=== PATIENT | male | born 1955 | race Caucasian/White ===

== ENCOUNTER 2016-04-05 05:13 | Observation (INO) | payer OTHER ==
[2016-02-28 11:29] VITALS: BMI 33.0
--- NOTE | 2016-02-28 12:15 | PAT Medication Instructions ---
Service Date Feb 28, 2016. Current Home Medication List Aspirin (Aspirin Ec), 81 MG PO QAM Atorvastatin (Lipitor), 80 MG PO QAM Canagliflozin (Invokana), 1 TAB PO QAM Clopidogrel (Plavix), 75 MG PO QAM Dorzolamide Hcl-Timolol Maleat (Cosopt Oph), Unknown Dose OP BID Fenofibrate (Tricor ), 145 MG PO QPM Fish Oil ([place]-3), 1,360 MG PO BID Fluticasone Propionate (Nasal) (Flonase Allergy Relief), 2 SPRAY VILMA QAM Gabapentin (Neurontin), 600 MG PO BID Hydrocodone/Acetaminophen 5MG/325MG (Renick 5MG/325MG), 1 TABLET PO HS PRN for Pain Ibuprofen (Motrin), 800 MG PO NOON PRN for Pain Indomethacin (Indocin), 25 MG PO PRN PRN for GOUT Insulin Aspart (Novolog Flexpen) Insulin Glargine (Lantus Solostar), 56 SC AMPM Liraglutide (Victoza), 1.2 MG SC QAM Loratadine (Claritin), 10 MG PO QAM Losartan Potassium (Cozaar), 50 MG PO QAM Metformin Hcl (Glucophage), 1,000 MG PO BID Montelukast Sodium (Singulair), 10 MG PO HS Omeprazole (Prilosec), 20 MG PO QAM Tramadol (Ultram), 50 MG PO Q8H PRN for Pain Travoprost (Travatan Z), 1 DROPS OPL HS Trazodone Hcl (Trazodone), 50 MG PO QPM Medication Instructions For Your Scheduled Surgery - Check with surgeon for instructions: Ibuprofen (Motrin), 800 MG PO NOON PRN for Pain - Check with surgeon/fiberglass container winding operator (Dr. Cid) for instructions: Aspirin (Aspirin Ec), 81 MG PO QAM Clopidogrel (Plavix), 75 MG PO QAM - Hold the following medications 2 weeks prior to surgery: Fish Oil ([place]-3), 1,360 MG PO BID - Hold the following medications 48 hours prior to surgery: Metformin Hcl (Glucophage), 1,000 MG PO BID - Hold the following medications the morning of surgery: Losartan Potassium (Cozaar), 50 MG PO QAM Loratadine (Claritin), 10 MG PO QAM Canagliflozin (Invokana), 1 TAB PO QAM Insulin Aspart (Novolog Flexpen) - Take the following medications the morning of surgery with a sip of water: Omeprazole (Prilosec), 20 MG PO QAM Liraglutide (Victoza), 1.2 MG SC QAM Gabapentin (Neurontin), 600 MG PO BID Fluticasone Propionate (Nasal) (Flonase Allergy Relief), 2 SPRAY VILMA QAM Indomethacin (Indocin), 25 MG PO PRN PRN for GOUT Hydrocodone/Acetaminophen 5MG/325MG (Renick 5MG/325MG), 1 TABLET PO HS PRN for Pain (okay to take up to 4 hours prior to surgery if needed) Tramadol (Ultram), 50 MG PO Q8H PRN for Pain (okay to take up to 4 hours prior to surgery if needed) Dorzolamide Hcl-Timolol Maleat (Cosopt Oph), Unknown Dose OP BID Atorvastatin (Lipitor), 80 MG PO QAM - Hold the following medications as scheduled the night before surgery: Fenofibrate (Tricor ), 145 MG PO QPM - Take the following medications as scheduled the night before surgery: Trazodone Hcl (Trazodone), 50 MG PO QPM Travoprost (Travatan Z), 1 DROPS OPL HS Montelukast Sodium (Singulair), 10 MG PO HS Gabapentin (Neurontin), 600 MG PO BID Indomethacin (Indocin), 25 MG PO PRN PRN for GOUT Hydrocodone/Acetaminophen 5MG/325MG (Renick 5MG/325MG), 1 TABLET PO HS PRN for Pain (if needed) Tramadol (Ultram), 50 MG PO Q8H PRN for Pain (if needed) Dorzolamide Hcl-Timolol Maleat (Cosopt Oph), Unknown Dose OP BID Insulin Glargine (Lantus Solostar), 56 SC AMPM - For Insulin Dependent Diabetic patients: Test blood sugar A.M. of surgery. - If blood sugar greater than 150, take half of your regular dose of: Insulin Glargine (Lantus Solostar), take 28 units - If blood sugar less than 150, do not take any: Insulin Glargine ( Lantus Solostar) If you have any questions please call us at [phone] (Radha Mary PA-C) or [phone] or [phone]
[2016-02-28 12:38] LABS: BASO % 0.4 %; BASO ABS # 0.03 K/uL (0-0.2); COMPLETE YES; EOS % 1.5 %; HEMATOCRIT 38.4 % (42-52); IG% 0.4 %; LYMPH % 40.2 %; LYMPH ABS # 2.95 K/uL (1.2-3.4); MEAN CORPUSCULAR HGB CONC 34.1 g/dl (32-36); MEAN PLATELET VOLUME 9.8 fL (7.4-10.4); MONO % 10.1 %; NEUT % 47.4 %; PLATELET COUNT 332 K/uL (130-400); RED BLOOD COUNT 4.22 M/uL (4.7-6.1); WHITE BLOOD COUNT 7.34 K/uL (4.8-10.8)
--- NOTE | 2016-02-28 12:43 | DIAGNOSTIC IMAGING REPORT ---
CHEST PREADMISSION(PA/LAT) CLINICAL HISTORY: Preoperative evaluation. COMPARISON STUDY: No previous studies for comparison. FINDINGS: Lung volumes are normal. There is no pneumothorax or pleural effusion. Pulmonary vascularity is normal. There is no consolidation to suggest pneumonia. Minimal bibasilar opacities favor atelectasis. Cardiac size is normal. Mediastinal contours are normal. IMPRESSION: 1. No acute cardiomegaly findings. 2. Minimal bibasilar opacities which likely reflect atelectasis. Electronically signed by: Bob Cheek M.D. 02/28/2016 12:42 PM
[2016-02-28 12:46] LABS: PROTHROMBIN TIME (PATIENT) 10.3 SECONDS (9.0-12.0)
[2016-02-28 12:50] LABS: URINE APPEARANCE CLEAR (CLEAR); URINE BILIRUBIN NEG (NEG); URINE COLOR YELLOW; URINE NITRITE NEG (NEG); URINE SPECIFIC GRAVITY 1.017 (1.000-1.030); UROBILINOGEN NEG (NEG)
[2016-02-28 12:58] LABS: MANUAL MICROSCOPIC REQUIRED? NO; REVIEW REQ? NO
[2016-02-28 13:02] LABS: BUN/CREATININE RATIO 13.4 (10-20); CALCIUM 9.5 mg/dl (8.5-10.1); CREATININE 1.4 mg/dl (0.60-1.40); POTASSIUM 4.3 mmol/L (3.5-5.1)
--- NOTE | 2016-04-04 12:38 | HISTORY & PHYSICAL EXAMINATION ---
DATE OF ADMISSION: 04/05/2016 SUBJECTIVE CHIEF COMPLAINT: Right ankle pain. HISTORY OF PRESENT ILLNESS: This is a patient who has had a 4 year history of right hindfoot pain and swelling. He has been treated for severe arthritis and possible Charcot foot and ankle. He is a type 2 diabetic with a 15 year history of neuropathy within the lower extremity. He had failed conservative management. He is now being set up for surgical treatment. PAST MEDICAL HISTORY: Farley's esophagus, ischemic heart disease, angioplasty and stenting of the mid right coronary artery on 01/16/2006, diabetes, hyperlipidemia, diabetic retinopathy, diabetic neuropathy with peripheral neuropathy, history of kidney stones, glaucoma. History of sciatica, gout. CURRENT MEDICATIONS: Tricor 145 mg p.o. daily, Lipitor 80 mg p.o. daily, trazodone 25 mg 3 tablets p.o. at bedtime, Plavix 75 mg daily, aspirin 81 mg daily, fish oil 1000 mg p.o. daily, Claritin 10 mg daily, Flonase 1 spray in each nostril daily, Trusopt eyedrops 1 drop in each eye b.i.d., Lantus insulin 58 units subQ b.i.d., Travatan eye drops in the left eye 1 drop at bedtime, Novolin insulin on a sliding scale, Osteo Bi-Flex 1 p.o. daily, gabapentin 300 mg p.o. t.i.d., metformin 1000 mg p.o. b.i.d., losartan 25 mg p.o. daily, Singulair 10 mg p.o. daily, omeprazole 20 mg daily, indomethacin 25 mg p.o. b.i.d. p.r.n., Mag-Ox 750 mg 1 p.o. daily, tramadol 50 mg 1 p.o. q. 6 hours p.r.n. pain, Invokana 300 mg 1 p.o. daily, and [place] 5/325 mg 1 p.o. q. 6 hours p.r.n. pain. ALLERGIES: ACTOS CAUSES FLUID RETENTION, AND LISINOPRIL CAUSES A COUGH. FAMILY HISTORY: Noncontributory. SOCIAL HISTORY: The patient denies alcohol and tobacco use. PAST SURGICAL HISTORY: Vitrectomy in both eyes, cardiac stent in 2005. OBJECTIVE PHYSICAL EXAMINATION: GENERAL: The patient is alert and oriented x3. He is in no acute distress. He is a well-dressed, well-nourished 61-year-old male. Neuro, his affect is appropriate. CARDIOVASCULAR: Heart has a regular rhythm and rate without murmurs. LUNGS: Clear to auscultation bilateral. Dorsalis pedis, posterior tib pulse +2/4. Cap refill is less than 2 seconds. LYMPHATIC: No evidence of any swollen lymph nodes. MUSCULOSKELETAL: The patient has an antalgic gait favoring the right lower extremity. Upon inspection of the right lower extremity, the patient is noted to have a pes planovalgus deformity of the right hindfoot. He is noted to have significant swelling of the hindfoot and mid foot on the right side. With palpation, he has tenderness at both the medial and lateral aspects of the hindfoot in the area of the talonavicular joint and at the sinus tarsi. He has decrease in range of motion particularly with dorsiflexion, which he gets approximately 0 degrees. Any range of motion elicits pain. He has decrease in strength secondary to pain. SKIN: There are no scars, rashes or ulcers noted. NEUROLOGIC: The patient has decreased sensation of bilateral lower extremities in the stocking distribution. X-RAY EXAMINATION: Multiple views of the right foot and ankle demonstrate pes planus deformity with severe hindfoot osteoarthritic changes. ASSESSMENT: 1. Right hindfoot osteoarthritis. 2. Right foot Charcot arthropathy. 3. Right painful pes planovalgus deformity. 4. Achilles contracture. PLAN: Above assessment was discussed with the patient. At this time it was recommended the patient undergo a right triple arthrodesis with percutaneous tendo Achilles lengthening and application of platelet rich plasma. All potential risks, benefits, complications, alternatives and rehab have been discussed with the patient. At this time he wishes to proceed with the surgery as indicated. He will be scheduled for this surgery on 04/05/2016. ANDREA
[~2016-04-05] VITALS: Ht 182.9 cm; Wt 112.0 kg
[2016-04-05] VITALS (9 sets, daily range): BP systolic 117–159; BP diastolic 72–84; PULSE 76–97; TEMP 36.4–37.4; O2SAT 90–97; Ht 182.9 cm; Wt 112.0 kg
[~2016-04-05 05:13] MED LIST: ASPI81TA28 PO; ATOR-26 PO; CANA1TAB3 PO; CEFAZOLIN 2000 MG/60 ML D5W IV SCH; CLOP1TAB15 PO; CLR10 PO; DORZ2SOL20 OP; FENO145T26 PO; FLUT0.15 NAE; GABA-113 PO; HYDR-5688 PO; IBUP-1428 PO; INDO-22 PO; INSDGIPEN SC; LIRA18IN SC; LOSA50TA6 PO; METF-384 PO; MONT1TAB3 PO; NVLGI/PEN; OMEG10007 PO; OMEP20CA59 PO; TRAM-10 PO; TRAV0.00 OPL; TRAZ50TA35 PO
[2016-04-05] MEDS ORDERED: LACTATED RINGER'S 1000ML 1,000 ML IV SCH (06:00)
[2016-04-05] MEDS ORDERED: CEFAZOLIN IV 2,000 MG/60 ML D5W IV ONE ×2 (06:19→06:46)
[2016-04-05] MEDS ORDERED: GLYCOPYRROLATE INJ 0.2 MG/ML VIAL ONE (06:25)
[2016-04-05] MEDS ORDERED: PROPOFOL IV EMULSION 10 MG/ML 20 ML VIAL IV ONE (06:25)
[2016-04-05] MEDS ORDERED: ROCURONIUM BROMIDE 10 MG/ML 5 ML VIAL ONE (06:25)
[2016-04-05] MEDS ORDERED: NEOSTIGMINE METHYLSULFATE 5 MG/5 ML SYR ONE (06:25)
[2016-04-05] MEDS ORDERED: DEXAMETHASONE SOD INJ 4 MG/ML VIAL ONE (06:25)
[2016-04-05] MEDS ORDERED: ONDANSETRON INJ 2 MG/ML 2 ML VIAL ONE (06:25)
[2016-04-05] MEDS ORDERED: LIDOCAINE HCL 2% 2 ML VIAL (20MG/ML) ONE (06:25)
[2016-04-05] MEDS ORDERED: FENTANYL CITRATE INJ 50 MCG/1 ML 2 ML VIAL ONE ×2 (06:26→10:07)
[2016-04-05] MEDS ORDERED: MIDAZOLAM HCL 1 MG/ML 2ML VIAL ONE (06:26)
[2016-04-05] MEDS ORDERED: BUPIVACAINE 0.25% 30 ML VIAL ONE (06:26)
[2016-04-05] MEDS ORDERED: ONDANSETRON INJ 2 MG/ML 2 ML VIAL IV PRN ×2 (07:15→11:30)
[2016-04-05] MEDS ORDERED: PHENYLEPHRINE 100MCG/ML 5ML SYR IV PRN (07:15)
[2016-04-05] MEDS ORDERED: ATROPINE SULFATE 0.1 MG/ML 5ML SYR IV PRN (07:15)
[2016-04-05] MEDS ORDERED: HYDROmorphone INJ 2 MG/ML SYR/VIAL IV PRN (07:15)
[2016-04-05] MEDS ORDERED: EpHEDrine SULFATE INJ 50 MG/ML AMP IV PRN (07:15)
--- NOTE | 2016-04-05 07:34 | History & Physical Bridge Note ---
H&P Re-Evaluation Bridge Note: I have examined the patient, reviewed the History & Physical and in the interval since the performance of the History & Physical I have noted the following changes of clinical significance: No changes noted
[2016-04-05] MEDS ORDERED: SUCCINYLCHOLINE CHLORIDE 20 MG/ML 10 ML VIAL IV ONE (08:24)
[2016-04-05] MEDS ORDERED: SODIUM CHLORIDE 0.9% INJ 10 ML VIAL ONE (08:24)
[2016-04-05] MEDS ORDERED: THROMBIN 5,000 UNITS (BOVINE) TOP ONE (08:46)
[2016-04-05] MEDS ORDERED: CALCIUM CHLORIDE 10% XX ONE (08:47)
[2016-04-05] MEDS ORDERED: BACITRACIN 50000 UNIT VIAL IR ONE (10:44)
--- NOTE | 2016-04-05 11:29 | [facility] Post Operative Brief Note ---
Immediate Operative Summary Operative Date Apr 05, 2016. Pre-Operative Diagnosis Right hindfoot osteoarthritis, right foot Charcot arthropathy, right painful pes planovalgus deformity, achilles contracture Post-Operative Diagnosis Right hindfoot osteoarthritis, right foot Charcot arthropathy, right painful pes planovalgus deformity, achilles contracture Procedure(s) Performed Right Ankle Triple Arthrodesis with Percutaneous Tendoachilles Lengthening; Application of Platelet Rich Plasma; Application of Augment Surgeon Dr. Rodríguez Hood Greeting Card Maker Surgeon(s) Osito Valiente PA-C Estimated Blood Loss 20ml Findings See Dict Specimens None per surgeon Drains HV x 1 Anesthesia GLMA w/ popliteal block Complication(s) None Disposition Recovery Room / PACU
[2016-04-05] MEDS ORDERED: INDOMETHACIN 25 MG CAP PO PRN ×2 (11:30→15:00)
[2016-04-05] MEDS ORDERED: ALUMINUM/MAGNESIUM/SIMETH (MAALOX MAX) 30 ML UDC PO PRN (11:30)
[2016-04-05] MEDS ORDERED: MAGNESIUM HYDROXIDE SUSP 30 ML UDC PO PRN (11:30)
[2016-04-05] MEDS ORDERED: NO NSAIDS SCH (11:30)
[2016-04-05] MEDS ORDERED: BISACODYL 10 MG SUPP PR PRN (11:30)
[2016-04-05] MEDS ORDERED: ZOLPIDEM TARTRATE 5 MG TAB PO PRN (11:30)
[2016-04-05] MEDS ORDERED: SOD PHOSPHATE/SOD BIPHOSPHATE ENEMA 132 ML BTL PR PRN (11:30)
[2016-04-05] MEDS ORDERED: IV FLUIDS COMPLETED PRN (12:00)
--- NOTE | 2016-04-05 12:36 | DIAGNOSTIC IMAGING REPORT ---
RIGHT ANKLE 2 VIEWS CLINICAL HISTORY: Post operative evaluation. COMPARISON: Fluoroscopic intraoperative images of the right ankle performed earlier today. FINDINGS: Fine detail is obscured by overlying cast. Skin jarad overlie the Achilles tendon. Screws extend across the subtalar, talonavicular and calcaneocuboid articulations consistent with a triple arthrodesis. Hardware is intact. Surgical drain is in place. There are no unexpected radiopaque foreign bodies. There is no fracture. IMPRESSION: Expected findings following triple arthrodesis. Electronically signed by: Bob Cheek M.D. 04/05/2016 12:35 PM Dictated Date/Time: 04/05/2016 12:33 PM
--- NOTE | 2016-04-05 12:37 | DIAGNOSTIC IMAGING REPORT ---
RIGHT FOOT MIN 3 VIEWS ROUTINE CLINICAL HISTORY: Postoperative evaluation. Osteoarthritis. COMPARISON: None FINDINGS: Fine detail is imaged by overlying cast. Drain is in place. There are skin jarad. Screws extend across the subtalar, talonavicular and calcaneocuboid articulations. Hardware is intact. There are no unexpected radiopaque foreign bodies. No fracture is identified. IMPRESSION: Expected findings following right triple arthrodesis. Electronically signed by: Bob Cheek M.D. 04/05/2016 12:36 PM Dictated Date/Time: 04/05/2016 12:35 PM
--- NOTE | 2016-04-05 12:38 | DIAGNOSTIC IMAGING REPORT ---
INTRAOPERATIVE RADIOGRAPHS CLINICAL HISTORY: Right hindfoot arthrodesis. Fluoroscopy time: 20 seconds. FINDINGS: 2 spot fluoroscopic views of the right ankle are presented. There are changes from triple arthrodesis of the right hindfoot. A large cortical lag screw transfixes the talocalcaneal articulation. 2 cortical lag screws transfix the talonavicular joint, and an additional cortical-like screw is present through the lateral tarsal bones. Overlying soft tissue edema is noted. IMPRESSION: Intraoperative images from triple arthrodesis in the hindfoot as above. See operative report for detailed findings. Electronically signed by: Earnest Lara M.D. 04/05/2016 12:37 PM Dictated Date/Time: 04/05/2016 12:35 PM
--- NOTE | 2016-04-05 12:44 | Anesthesiology Progress Note ---
Anesthesia Post Op Note Date & Time Apr 05, 2016 at 12:44 Vital Signs Pain Intensity: 1 Vital Signs Past 12 Hours Date Time Temp Pulse Resp B/P Pulse Ox O2 Delivery O2 Flow Rate FiO2 04/05/16 12:14 86 14 95 04/05/16 12:14 85 14 04/05/16 12:13 151/70 04/05/16 12:09 86 21 94 04/05/16 12:09 86 21 04/05/16 12:08 85 23 95 04/05/16 12:08 84 23 04/05/16 12:03 85 12 150/71 95 04/05/16 12:03 85 12 04/05/16 11:58 89 18 149/74 95 04/05/16 11:58 88 18 04/05/16 11:53 83 10 04/05/16 11:53 87 10 157/67 96 04/05/16 11:48 83 11 04/05/16 11:48 84 11 154/67 95 04/05/16 11:47 36.8 04/05/16 11:43 84 15 162/76 100 04/05/16 11:43 84 15 04/05/16 11:38 83 12 145/70 98 04/05/16 11:38 83 12 04/05/16 11:33 84 11 04/05/16 11:33 84 11 156/68 98 04/05/16 11:30 Nasal Cannula 3 04/05/16 11:28 80 10 04/05/16 11:28 79 10 147/68 96 04/05/16 11:23 82 11 04/05/16 11:23 81 11 153/75 99 04/05/16 11:18 83 13 158/73 99 04/05/16 11:18 82 13 04/05/16 11:16 167/78 04/05/16 11:13 36.5 86 16 167/78 99 Mask 10 04/05/16 06:03 36.8 76 20 125/75 97 Room Air Notes Mental Status: alert / awake / arousable, participated in evaluation Pt Amnestic to Procedure: Yes Nausea / Vomiting: adequately controlled Pain: adequately controlled Airway Patency, RR, SpO2: stable & adequate BP & HR: stable & adequate Hydration State: stable & adequate Anesthetic Complications: no major complications apparent
--- NOTE | 2016-04-05 13:32 | OPERATIVE REPORT ---
DATE OF OPERATION: 04/05/2016 PREOPERATIVE DIAGNOSES: 1. Right hindfoot degenerative joint disease. 2. Achilles contracture. 3. Charcot arthropathy of the foot. 4. Painful pes planovalgus. POSTOPERATIVE DIAGNOSES: Same. PROCEDURES: 1. Right triple arthrodesis. 2. Percutaneous tendon Achilles lengthening. 3. Application of platelet rich plasma concentrate. 4. Application of Augment bone substitute. SURGEON: Dr. Rodríguez Hood. DIRECTOR PHARMACOVIGILANCE: Osito Valiente PA-C, who was present for patient positioning, sterile prep and drape, management of retractors and instruments. He was present through the critical portions of the case including wound closure, application of sterile dressing and transport of the patient to recovery. ANESTHESIA: General LMA with popliteal block. SPECIMENS: None. DRAINS: Hemovac x1. COMPLICATIONS: None. BLOOD LOSS: 20 mL. PERTINENT HISTORY: This is a 61-year-old gentleman who has been diabetic for several years, developed neuropathy of his lower extremities and developed Charcot neuroarthropathy of the right lower extremity. The patient had progressive collapse and deformity of his right foot with some pain. He was then scheduled for surgery as indicated. All potential risks, benefits, complications, alternatives, rehab, potential for incomplete relief of symptoms, need for further surgery, DVT, PE, , persistent pain, swelling, scarring, weakness, neurovascular injury, wound complications, hardware failure, nonunion, malunion, and bone fracture were discussed with the patient and the patient decided to proceed with the procedure as indicated. DESCRIPTION OF PROCEDURE: The patient was taken to the Operating Suite, placed supine on the Operating Room table, after consent and identification of the proper operative site, the patient was anesthetized. LMA was placed. Tourniquet was placed high on the right lower extremity. Right lower extremity was then sterilely prepped and draped in the usual fashion. Exsanguinated with an Esmarch bandage and tourniquet inflated to 350 mmHg. Next, the foot was held in dorsiflexion and a three-part percutaneous incision was made with an 11-blade scalpel to lengthen the Achilles tendon using standard technique. Next, the stab incisions were then closed using interrupted skin jarad. Next, the 15-blade scalpel was used to make an incision from the distal aspect of the fibula to the base of the fourth metatarsal. The incision was deepened through subcutaneous tissue and meticulous hemostasis was obtained with electrocautery. Subcutaneous nerves were identified, retracted and protected. The extensor digitorum brevis was identified and was sharply elevated from the anterior process of the calcaneus revealing the sinus tarsi. Next, the sinus tarsi was debrided carefully with a rongeur and 15-blade scalpel. A cervical lamina psychological operations officer was placed in the sinus tarsi opening the subtalar joint. Subtalar joint was then prepared with the use of a curette and rongeur to resect the articular surfaces down to subchondral bleeding bone. Irrigation was performed with sterile normal saline and then 2-mm drill bit was used to further prepare the joint surface with multiple drill holes in both surfaces of the subtalar joint and a small osteotome and mallet were used to fish scale the joint surfaces to increase surface area and bleeding. Next, the calcaneocuboid joint was then entered with the 15-blade scalpel, debrided of soft tissue and then a lamina psychological operations officer was placed in the joint opening it for preparation with a curette and rongeur to remove any articular surface down to subchondral bleeding bone. Next, the 2-mm drill bit was used to further prepare the joint with multiple drill holes into the joint and then a small osteotome and mallet were used to fish scale the joint. Next, the 15-blade was used to make an incision from the distal aspect of the tibia to the base of the naviculocuneiform joint. The incision was deepened through subcutaneous tissue. Meticulous hemostasis obtained with electrocautery. A Weitlaner retractor was placed in the wound. The greater saphenous vein was identified, retracted and protected. The capsule of the talonavicular joint was then entered sharply with a 15-blade scalpel and elevated both superior and inferiorly. A small Harley was placed on the neck of the talus and further soft tissue elevation was performed with the 15-blade scalpel until the talonavicular joint was clearly visualized. The articular surface was then debrided with curette and rongeur and a cervical lamina psychological operations officer was placed in the joint. Next, it was irrigated with sterile normal saline and a 2-mm drill bit was used to make multiple holes in the joint surfaces and fish scaling was performed with a small osteotome and mallet. Next, the medial and lateral incisions were irrigated copiously with sterile normal saline and the joint surfaces were then aligned appropriately based on alignment of the lower extremity and the kneecap. Subtalar joint was aligned and then a 7.3-mm cannulated guidepin was driven from the superior aspect of the talus across the subtalar joint into the calcaneus under fluoroscopic control. Next, an appropriate length 7.3-mm short-thread screw was placed under fluoroscopic control and countersunk slightly. Next, the guidepin was removed. Next, 2.25-mm guidepins x2 were used to stabilize the talonavicular joint in appropriate alignment and then the calcaneocuboid joint was then stabilized with another guidepin with appropriate alignment under fluoroscopic control. Next, appropriate length 7.3-mm short-thread cannulated screws were placed across the talonavicular and calcaneocuboid joints respectively under fluoroscopic control. Venous blood was extracted from the patient, spun in a proprietary centrifuge and then the platelet rich plasma concentrate was then partially mixed with Augment bone graft substitute with thrombin and then inserted into the subtalar joint, into the calcaneocuboid joint and into the talonavicular joint, packed in with a freer elevator. A 10-Montserratian single lumen Hemovac drain was then placed in the lateral aspect of the wound exiting dorsolaterally and the extensor digitorum brevis then closed back to its origin with interrupted 2-0 Vicryl sutures. PRP was injected throughout both incisions both medially and laterally. The talonavicular joint capsule was closed using 2-0 Vicryl sutures. The dermis was closed using buried interrupted 3-0 Vicryl sutures medially and laterally and then skin incisions were closed using 4-0 Nylon sutures. A sterile compressive dressing and bulky Bob-Denise plaster splint was applied, overwrapped with an Keith wrap. The tourniquet was released. The toes were pink and warm. DISPOSITION: Patient was awakened and taken to Recovery in stable condition. I attest to the content of the Intraoperative Record and any orders documented therein. Any exceptions are noted below. ANDREA
[2016-04-05] MEDS: POTASSIUM CHLORIDE INJ 10 MEQ in SODIUM CHLORIDE 0.9% 1000ML 1,000 ML IV SCH ×2 (13:44→23:33)
[2016-04-05] MEDS: ACETAMINOPHEN 500 MG TAB PO SCH ×2 (14:23→21:15)
[2016-04-05] MEDS: OXYCODONE HCL IR 5 MG TAB (IMMEDIATE RELEASE) PO PRN ×2 (14:24→21:15)
[2016-04-05] MEDS ORDERED: DEXTROSE 50% 50 ML SYR IV PRN (14:45)
[2016-04-05] MEDS ORDERED: GLUCAGON FOR INJ 1 MG VIAL SQ PRN (14:45)
[2016-04-05] MEDS ORDERED: GLUCOSE 10 TABS/TUBE PO PRN (14:45)
[2016-04-05] MEDS ORDERED: GLUCOSE 40% GEL 15 GM TUBE PO PRN (14:45)
[2016-04-05] MEDS ORDERED: MAGN400T5 PO (14:50)
[2016-04-05] MEDS ORDERED: DORZ1SOL6 OP (14:50)
[2016-04-05] MEDS ORDERED: NRN600 PO (14:50)
[2016-04-05] MEDS ORDERED: TRAZ50TA35 PO (14:50)
[2016-04-05] MEDS ORDERED: IND/25 PO (14:50)
[2016-04-05] MEDS ORDERED: ASCO500T3 PO (14:50)
[2016-04-05] MEDS ORDERED: INSDGIPEN SC (14:50)
--- NOTE | 2016-04-05 15:13 | Medical Consult ---
Consultation Date of Consultation: Apr 05, 2016. Attending Physician: Rodríguez Hood D.O. Reason for Consultation: medical mgmt History of Present Illness This is a 61 y/o male with PMHx of insulin-dependant DM2, CAD s/p stent, HTN, Dyslipidemia and other problems as outlined below who presents POD 0 s/p R foot surgery performed by Dr. Hood. Pt is doing well post-operatively. He rates R ankle pain at a 4/10 but states the pain medication has been offering relief. Pt denies chest pain, palpitations, SOB, abd pain, N/V, bowel or bladder issues , LE edema, calf pain, lightheadedness/dizziness. Past Medical/Surgical History Medical Problems: (1) CAD (coronary artery disease) Status: Chronic (2) Diabetes mellitus, type II Status: Chronic (3) Dyslipidemia Status: Chronic (4) GERD (gastroesophageal reflux disease) Status: Chronic (5) Glaucoma Status: Chronic (6) HTN (hypertension) Status: Chronic Surgical Problems: (1) H/O vitrectomy Permanent Comment: bilat Status: Resolved (2) Stented coronary artery Permanent Comment: mid RCA 2005 Dr. 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) Allergies Coded Allergies: No Known Allergies (Unverified , 02/28/16) Home Medications Active Reported Vitamin C (Ascorbic Acid) 500 Mg Tab 500 Mg PO DAILY Mag-Ox (Magnesium Oxide) 400 Mg Tab 400 Mg PO TID Trazodone (Trazodone HCl) 50 Mg Tab 150 Mg PO HS Lantus Solostar (Insulin Glargine) 100 Unit/Ml Inj 58 Units SC BID Indocin (Indomethacin) 25 Mg Cap 25 Mg PO TID PRN Gabapentin 600 Mg Tab 1,200 Mg PO HS Cosopt Oph (Dorzolamide Hcl-Timolol Maleat) 1 Shanice Shanice 1 Drops OP BID Victoza (Liraglutide) 18 Mg/3 Ml Inj 1.2 Mg SC QAM Aspirin Ec (Aspirin) 81 Mg Tab 81 Mg PO QAM Claritin (Loratadine) 10 Mg Tab 10 Mg PO QAM Ultram (Tramadol HCl) 50 Mg Tab 50 Mg PO Q8H PRN Plavix (Clopidogrel Bisulfate) 75 Mg Tab 75 Mg PO QAM [place]-3 (Fish Oil) 1 Ea Cap 1,360 Mg PO BID Neurontin (Gabapentin) 300 Mg Cap 600 Mg PO BID Travatan Z (Travoprost) 0.004 % Kenn 1 Drops OPL HS Singulair (Montelukast Sodium) 10 Mg Tab 10 Mg PO HS Prilosec (Omeprazole) 20 Mg Capcr 20 Mg PO QAM Glucophage (Metformin Hcl) 1,000 Mg Tab 1,000 Mg PO BID Lipitor (Atorvastatin Calcium) 80 Mg Tab 80 Mg PO QAM Cozaar (Losartan Potassium) 50 Mg Tab 50 Mg PO QAM Novolog Flexpen (Insulin Aspart) 100 Units/Ml Inj DOSED ON SLIDING SCALE BASED OFF OF 26 UNITS PER PATIENT Tricor (Fenofibrate) 145 Mg Tab 145 Mg PO QPM Invokana (Canagliflozin) 300 Mg Tab 1 Tab PO QAM TAKES 15 MINUTES PRIOR TO EATING BREAKFAST Motrin (Ibuprofen) 800 Mg Tab 800 Mg PO NOON PRN Flonase Allergy Relief (Fluticasone Propionate (Nasal)) 50 Mcg/Act Spr 2 [place] VILMA QAM [place] 5MG/325MG (Acetaminophen/Hydrocodone Bitart) Tab 1 Tablet PO HS PRN PRN PAIN Current Inpatient Medications Current Inpatient Medications Medications (Trade) Dose Ordered Sig/Christiano Route Start Time Stop Time Status Last Admin Dose Admin Lactated Ringer's (Lr 1000ml) 1,000 ml @ 15 mls/hr Q24H IV 04/05/16 06:00 04/06/16 05:59 04/05/16 06:30 15 MLS/HR Atorvastatin Calcium (Lipitor Tab) 80 mg QAM PO 04/06/16 09:00 05/06/16 08:59 Clopidogrel Bisulfate (plAVix TAB) 75 mg QAM PO 04/06/16 09:00 05/06/16 08:59 Fenofibrate (Tricor Tab) 145 mg QPM PO 04/05/16 21:00 05/05/16 20:59 Fish Oil ([place]-3 (Purified Fish Oil) Cap) 1 gm BID PO 04/05/16 21:00 05/05/16 20:59 Fluticasone Propionate (Flonase Nasal [place]) 1 sprays QAM VILMA 04/06/16 09:00 05/06/16 08:59 Gabapentin (Neurontin Tab) 600 mg BID PO 04/05/16 21:00 05/05/16 20:59 Loratadine (Claritin Tab) 10 mg QAM PO 04/06/16 09:00 05/06/16 08:59 Losartan Potassium (coZAAR TAB) 50 mg QAM PO 04/06/16 09:00 05/06/16 08:59 Metformin HCl (Glucophage Tab) 1,000 mg BIDM PO 04/05/16 17:45 05/05/16 17:44 Montelukast Sodium (Singulair Tab) 10 mg HS PO 04/05/16 21:00 05/05/16 20:59 Travoprost (Travatan Z) 1 drops HS OPL 04/05/16 21:00 05/05/16 20:59 Trazodone HCl (Desyrel Tab) 50 mg QPM PO 04/05/16 21:00 05/05/16 20:59 Miscellaneous Information (Order Awaiting Action) 1 ea QS N/A 04/05/16 16:00 05/05/16 15:59 Miscellaneous Information 1 ea 1 ea QS N/A 04/05/16 16:00 05/05/16 15:59 Potassium Chloride/Sodium Chloride (KCl Inj/Nss 1000ml) 1,005 ml @ 100 mls/hr Q10H3M IV 04/05/16 13:00 05/05/16 12:59 04/05/16 13:44 100 MLS/HR Miscellaneous Medication (No Nsaids) 1 ea UD N/A 04/05/16 11:30 05/05/16 11:29 Oxycodone HCl (Roxicodone Immediate Rel Tab) 1-2 TABS FOR PAIN 1 TABLET ... Q4H PRN PO 04/05/16 11:30 04/19/16 11:29 Oxycodone HCl (Oxycontin Tab) 10 mg Q12 PO 04/05/16 21:00 04/19/16 20:59 Morphine Sulfate (MoRPHine SULFATE INJ) 1 mg Q1HWA PRN IV 04/05/16 11:30 04/19/16 11:29 Acetaminophen (Tylenol Tab) 1,000 mg Q8 PO 04/05/16 14:00 05/05/16 13:59 Magnesium Hydroxide (Milk Of Magnesia Susp) 30 ml Q6H PRN PO 04/05/16 11:30 05/05/16 11:29 Bisacodyl (Dulcolax Supp) 10 mg DAILY PRN [place] 04/05/16 11:30 05/05/16 11:29 Sodium Biphosphate/ Sodium Phosphate (Fleet Enema) 132 ml DAILY PRN [place] 04/05/16 11:30 05/05/16 11:29 Senna (Senokot Tab) 17.2 mg HS PO 04/05/16 21:00 05/05/16 20:59 Docusate Sodium (coLACE CAP) 100 mg BID PO 04/05/16 21:00 05/05/16 20:59 Diphenhydramine HCl (Benadryl Cap) 25 mg Q8H PRN PO 04/05/16 11:30 05/05/16 11:29 Al Hydrox/Mg Hydrox/Simethicone (Maalox Max Susp) 15 ml Q4H PRN PO 04/05/16 11:30 05/05/16 11:29 Zolpidem Tartrate (Ambien Tab) 5 mg HSZ PRN PO 04/05/16 11:30 05/05/16 11:29 Multivitamins (Multivitamin Tab) 1 tab QAM PO 04/06/16 09:00 05/06/16 08:59 Ondansetron HCl (Zofran Inj) 4 mg Q6H PRN IV 04/05/16 11:30 05/05/16 11:29 Pantoprazole Sodium 40 mg 40 mg QAM PO 04/06/16 09:00 05/06/16 08:59 Cefazolin Sodium/ Dextrose (Ancef Iv/D5 50ml) 60 ml @ 100 mls/hr Q8H IV 04/05/16 16:00 04/06/16 00:35 Miscellaneous (Iv Fluids Completed) 1 ea PRN PRN N/A 04/05/16 12:00 04/05/17 11:59 Review of Systems Constitutional: No chills, No fatigue, No fever, No sweats, No weakness Eyes: No worsening of vision ENT: No hearing loss Respiratory: No cough Cardiovascular: No chest pain, No claudication, No edema Abdomen: No constipation, No diarrhea, No nausea, No pain, No vomiting Musculoskeletal: No calf pain, No swelling Genitourinary - Male: No dysuria Neurologic: No weakness Psychiatric: No depression symptoms Endocrine: No fatigue Hematologic / Lymphatic: No abnormal bleeding/bruising Integumentary: No new/changing skin lesions Physical Exam Date Time Temp Pulse Resp B/P Pulse Ox O2 Delivery O2 Flow Rate FiO2 04/05/16 12:30 95 Nasal Cannula 3.0 04/05/16 12:30 Nasal Cannula 2.0 04/05/16 12:14 86 14 95 04/05/16 12:14 85 14 04/05/16 12:13 151/70 04/05/16 12:09 86 21 94 04/05/16 12:09 86 21 04/05/16 12:08 85 23 95 04/05/16 12:08 84 23 04/05/16 12:03 85 12 150/71 95 04/05/16 12:03 85 12 04/05/16 11:58 89 18 149/74 95 04/05/16 11:58 88 18 04/05/16 11:53 83 10 04/05/16 11:53 87 10 157/67 96 04/05/16 11:48 83 11 04/05/16 11:48 84 11 154/67 95 04/05/16 11:47 36.8 04/05/16 11:43 84 15 162/76 100 04/05/16 11:43 84 15 04/05/16 11:38 83 12 145/70 98 04/05/16 11:38 83 12 04/05/16 11:33 84 11 04/05/16 11:33 84 11 156/68 98 04/05/16 11:30 Nasal Cannula 3 04/05/16 11:28 80 10 04/05/16 11:28 79 10 147/68 96 04/05/16 11:23 82 11 04/05/16 11:23 81 11 153/75 99 04/05/16 11:18 83 13 158/73 99 04/05/16 11:18 82 13 04/05/16 11:16 167/78 04/05/16 11:13 36.5 86 16 167/78 99 Mask 10 04/05/16 06:03 36.8 76 20 125/75 97 Room Air General Appearance: WD/WN, no apparent distress, + pertinent finding (Pt is sitting up in bed with at bedside ) Head: normocephalic, atraumatic Eyes: normal inspection ENT: hearing grossly normal Neck: supple Respiratory/Chest: chest non-tender, lungs clear, normal breath sounds, no respiratory distress Cardiovascular: regular rate, rhythm, no edema, + systolic murmur Abdomen/GI: normal bowel sounds, non tender, soft Back: normal inspection Extremities/Musculoskelatal: no calf tenderness, no pedal edema, + pertinent finding (large dressing applied to RLE with 1 drain noted containing blood ) Neurologic/Psych: alert, normal mood/affect, oriented x 3 Skin: normal color, warm/dry Laboratory Results Last 24 Hours Test 04/05/16 06:06 04/05/16 11:56 Bedside Glucose 180 mg/dl 171 mg/dl Assessment & Plan SEVERE R FOOT OA S/P R ANKLE ARTHRODESIS WITH ACHILLES TENDON LENGTHENING -POD 0; surgery performed by Dr. Hood -post-operative pain well managed -monitor for acute blood loss with daily H&H -pt encouraged to utilize spirometry to prevent post-op infection -PT/OT -activity and wound care orders per ortho protocol -will continue to follow INSULIN-DEPENDENT DM 2 -last A1C 8.3; repeat in AM -hold Metformin, Invokana, Victoza and NovoLog -cont Lantus and start ISS -monitor BSG AC HS CAD -s/p stent to mid RCA 2005 -cont ASA, Plavix, statin -pt currently denies acute coronary sxs HTN -stable -cont losartan -monitor DYSLIPIDEMIA -cont statin, fenofibrate and fish oil DVT PROPHYLAXIS -per ortho protocol CODE STATUS -FULL CODE status DISPO -per ortho. Pt seen in collaboration with Dr. Newberry. Please see her addendum for further details. Thanks! ATTENDING NOTE : pt seen and examined, care co ordinated with Rocio Chang PA-C 61 yo male underwent rt foot surgery today P/E: gen : no sign of distress HEENT ; sclera non icteric , PERRLA/EOMI HT; regular S1/S2 lungs: CTA abdomen ; soft. non tender ext : s/p rt ankle surgery , on bandage /NATALIE boot , drain present Neuro: no focal deficit A/P : Rt foot surgery : POD # 0 recovering well post op pain well controlled cont management as per Ortho Type 2 DM : hold oral meds insulin ssi basal Lantus CAD : stable no active cardiac issue cont out pt cardiac meds Thank you for allowing to participate in care for the patient Dr Estrella will continue to follow this patient form tomorrow 04/06/16
[2016-04-05] MEDS: CEFAZOLIN IV 2,000 MG in DEXTROSE 5% 50ML 50 ML IV SCH ×2 (15:41→23:33)
[2016-04-05] MEDS ORDERED: METFORMIN HCL 500 MG TAB PO SCH (17:45)
[2016-04-05] MEDS: MoRPHine SULFATE 2 MG/ML CARP IV PRN ×2 (18:15→20:55)
[2016-04-05] MEDS: INSULIN ASPART 100 UNITS/ML 3 ML PEN SC SCH ×2 (18:23→21:00)
[2016-04-05] MEDS: OXYCODONE HCL 10 MG TABCR (OXYCONTIN) PO SCH (20:57)
[2016-04-05] MEDS: SENNA 8.6 MG TAB PO SCH (20:58)
[2016-04-05] MEDS: MAGNESIUM OXIDE 400 MG TAB PO SCH (20:59)
[2016-04-05] MEDS: OMEGA-3 (PURIFIED FISH OIL) 1 GM CAP PO SCH (20:59)
[2016-04-05] MEDS: MONTELUKAST SOD 10 MG TAB PO SCH (20:59)
[2016-04-05] MEDS: DOCUSATE SODIUM 100 MG CAP PO SCH (21:00)
[2016-04-05] MEDS: FENOFIBRATE 145 MG TAB PO SCH (21:00)
[2016-04-05] MEDS ORDERED: GABAPENTIN 600 MG TAB PO SCH (21:00)
[2016-04-05] MEDS: TRAZODONE HCL 50 MG TAB PO SCH ×2 (21:01)
[2016-04-05] MEDS: GABAPENTIN 600 MG TAB PO SCH (21:02)
[2016-04-05] MEDS: DORZOLAMIDE/TIMOLOL 22.3/6.8MG/ML 10 ML BTL OP SCH (21:02)
[2016-04-05] MEDS: TRAVOPROST Z 0.004% OPH SOLN 2.5 ML BTL OPL SCH (21:03)
[2016-04-05] MEDS: INSULIN GLARGINE SC SCH (21:14)
[2016-04-06 02:45] VITALS: BP 153/75; PULSE 101; TEMP 37; O2SAT 96
[2016-04-06] MEDS: ACETAMINOPHEN 500 MG TAB PO SCH ×3 (06:11→21:28)
[2016-04-06] MEDS: OXYCODONE HCL IR 5 MG TAB (IMMEDIATE RELEASE) PO PRN ×4 (06:12→21:37)
[2016-04-06 06:17] LABS: HEMATOCRIT 36.9 % (42-52); MEAN CELL VOLUME 91.6 fL (80-100); MEAN CORPUSCULAR HEMOGLOBIN 30.5 pg (25-34); MEAN CORPUSCULAR HGB CONC 33.3 g/dl (32-36); MEAN PLATELET VOLUME 9.9 fL (7.4-10.4); PLATELET COUNT 309 K/uL (130-400); RED BLOOD COUNT 4.03 M/uL (4.7-6.1); WHITE BLOOD COUNT 14.18 K/uL (4.8-10.8)
[2016-04-06 06:47] LABS: ESTIMATED AVERAGE GLUCOSE 206 mg/dl; HA1C FLAG Normal (Normal)
[2016-04-06 06:57] LABS: CALCIUM 8.8 mg/dl (8.5-10.1); CREATININE 1.2 mg/dl (0.60-1.40); POTASSIUM 4.2 mmol/L (3.5-5.1)
[2016-04-06 07:25] VITALS: BP 136/75; PULSE 91; TEMP 36.8; O2SAT 96
[2016-04-06] MEDS ORDERED: PHARMACY GLYCEMIC MGMT CONSULT PRN (08:55)
[2016-04-06] MEDS ORDERED: NON-FORMULARY MEDICATION (Omeprazole (Prilosec) 20 MG) PO SCH (09:00)
[2016-04-06] MEDS ORDERED: NURSING VERBAL MED ORDER ONE (09:15)
[2016-04-06] MEDS: ATORVASTATIN 40 MG TAB PO SCH (09:20)
[2016-04-06] MEDS: OMEGA-3 (PURIFIED FISH OIL) 1 GM CAP PO SCH ×2 (09:20→21:46)
[2016-04-06] MEDS: PANTOprazole SOD 40 MG TAB PO SCH (09:20)
[2016-04-06] MEDS: MAGNESIUM OXIDE 400 MG TAB PO SCH ×3 (09:20→21:46)
[2016-04-06] MEDS: CLOPIDOGREL BISULFATE 75 MG TAB PO SCH (09:20)
[2016-04-06] MEDS: OXYCODONE HCL 10 MG TABCR (OXYCONTIN) PO SCH ×2 (09:20→21:27)
[2016-04-06] MEDS: DOCUSATE SODIUM 100 MG CAP PO SCH ×2 (09:20→21:27)
[2016-04-06] MEDS: LORATADINE 10 MG TAB PO SCH (09:20)
[2016-04-06] MEDS: GABAPENTIN 600 MG TAB PO SCH ×3 (09:20→21:27)
[2016-04-06] MEDS: LOSARTAN POTASSIUM 50 MG TAB PO SCH (09:20)
[2016-04-06] MEDS: MULTIVITAMIN TAB PO SCH (09:20)
[2016-04-06] MEDS: DORZOLAMIDE/TIMOLOL 22.3/6.8MG/ML 10 ML BTL OP SCH ×2 (09:21→21:26)
[2016-04-06] MEDS: INSULIN ASPART 100 UNITS/ML 3 ML PEN SC SCH ×4 (09:23→21:43)
--- NOTE | 2016-04-06 09:23 | Pharmacy Progress Note ---
Glycemic Control Intl Consult Date of Service Apr 06, 2016. Scope Glycemic Pharmacist consulted by Dr Estrella on 04/06/16 for glycemic control and to write orders per [facility] inpatient glycemic control protocol Objective Weight (Kilograms): 112.00 Accuchecks BSG (last 24hrs): Test 04/05/16 11:56 04/05/16 17:35 04/05/16 20:41 04/06/16 06:01 Bedside Glucose 171 mg/dl (70-99) 167 mg/dl (70-99) 185 mg/dl (70-99) Random Glucose 179 mg/dl (70-99) Test 04/06/16 07:57 Bedside Glucose 187 mg/dl (70-99) Laboratory Data (last 24hrs) Test 04/06/16 06:01 Anion Gap 10.0 mmol/L BUN/Creatinine Ratio 12.0 Blood Urea Nitrogen 14 mg/dl Creatinine 1.20 mg/dl Hemoglobin A1c 8.8 % Potassium Level 4.2 mmol/L Sodium Level 137 mmol/L White Blood Count 14.18 K/uL HbA1c Test 04/06/16 06:01 Hemoglobin A1c 8.8 % (4.5-5.6) H Recent Pertinent Medications Outpatient Anti-diabetic Regimen: * Lantus 58 units BID * Victoza 1.2mg SQ QAM * Canagliflozin 300mg po daily * Metformin 1g PO BID * A1c = 8.8 % 04/06/16 The patient is currently receiving: * Basal insulin: Lantus 58 units every 12 hours * Correctional Insulin: Novolog Correction per scale ACHS Goal Range: Low 120 mg/dL - High 160 mg/dL Correction Factor: 40 mg/dL/unit * Prandial insulin: Per carb ratio of 1 unit per 13 grams CHO consumed * Oral Agents: ON HOLD Risk Factors for Insulin Resistance: * Steroids: Dexamethasone 4mg IV x1 yesterday * Recent Surgery: POD 1 foot surgery, Dr Hood * Diet: Type 2 DM Assessment & Plan ASSESSMENT: * ADA & AACE recommend a goal blood sugar range 140-180 mg/dl for the majority of critically ill & non-critically ill patients. However, more stringent targets may be selected in individual cases. For patient's age and A1c and to facilitate healing post op, will use 120-160mg/dL range. * 61 yo type 2 diabetic, uncontrolled, A1c = 8.8%, POD1 foot surgery by Dr Hood. BSGs pretty well controlled in patient so far, I will just tighten CF and CR for patient's needs. PLAN FOR INPATIENT GLYCEMIC CONTROL: * Holding outpatient oral diabetes medications - may restart Metformin prior to discharge * Basal insulin with LANTUS 58 units SQ BID * Correctional Insulin with NOVOLOG per scale ACHS or Q6hrs while NPO * Goal Range: Low 120 mg/dL - High 160 mg/dL * CHANGE: Correction Factor: 20 mg/dL/unit * CHANGE: Nutritional / Prandial insulin per carb ratio of 1 unit per 7 grams CHO consumed * Please note that the plan above was derived based on current level of insulin resistance and hospital stress. These recommendations are appropriate for inpatient admission only. Plan of care upon discharge will need to be reassessed to avoid potential outpatient hypo/hyperglycemia. Thank you.
[2016-04-06] MEDS: INSULIN GLARGINE SC SCH ×2 (09:24→21:44)
--- NOTE | 2016-04-06 09:25 | Orthopedic Progress Note ---
Orthopedic Progress Note Date of Service Apr 06, 2016. Subjective Post OP Day: 1 Reports: feeling well, pain controlled w PO medications, Denies: SOB, chest pain , light headedness, nausea / vomiting Objective calves soft nontender, N/V intact, splint C/D/I, capillary refill less than 2 sec., dressing C/D/I, A&O x3, toes mobile, hemovac drainage Date Time Temp Pulse Resp B/P Pulse Ox O2 Delivery O2 Flow Rate FiO2 04/06/16 08:35 Room Air 04/06/16 07:25 36.8 91 16 136/75 96 Room Air 04/06/16 02:45 37.0 101 16 153/75 96 Nasal Cannula 2.0 04/05/16 23:30 37.1 94 16 137/72 95 Nasal Cannula 2.0 04/05/16 23:15 Room Air 04/05/16 19:27 37.4 97 18 153/75 92 Room Air 04/05/16 16:31 36.8 88 16 144/80 90 Room Air 04/05/16 15:32 36.9 92 16 117/80 94 Nasal Cannula 3.0 04/05/16 15:15 Nasal Cannula 3.0 04/05/16 14:30 36.6 79 18 146/79 92 Room Air 04/05/16 14:00 36.6 84 18 127/72 96 Nasal Cannula 2.0 04/05/16 13:30 37.2 83 18 149/84 94 Nasal Cannula 2.0 04/05/16 12:30 95 Nasal Cannula 3.0 04/05/16 12:30 Nasal Cannula 2.0 04/05/16 12:30 36.4 95 18 159/78 95 Nasal Cannula 3.0 04/05/16 12:14 86 14 95 04/05/16 12:14 85 14 04/05/16 12:13 151/70 04/05/16 12:09 86 21 94 04/05/16 12:09 86 21 04/05/16 12:08 85 23 95 04/05/16 12:08 84 23 04/05/16 12:03 85 12 150/71 95 04/05/16 12:03 85 12 04/05/16 11:58 89 18 149/74 95 04/05/16 11:58 88 18 04/05/16 11:53 83 10 04/05/16 11:53 87 10 157/67 96 04/05/16 11:48 83 11 04/05/16 11:48 84 11 154/67 95 04/05/16 11:47 36.8 04/05/16 11:43 84 15 162/76 100 04/05/16 11:43 84 15 04/05/16 11:38 83 12 145/70 98 04/05/16 11:38 83 12 04/05/16 11:33 84 11 04/05/16 11:33 84 11 156/68 98 04/05/16 11:30 Nasal Cannula 3 04/05/16 11:28 80 10 04/05/16 11:28 79 10 147/68 96 04/05/16 11:23 82 11 04/05/16 11:23 81 11 153/75 99 04/05/16 11:18 83 13 158/73 99 04/05/16 11:18 82 13 04/05/16 11:16 167/78 04/05/16 11:13 36.5 86 16 167/78 99 Mask 10 Laboratory Results 24 Hours: Test 04/06/16 06:01 Hematocrit 36.9 % Hemoglobin 12.3 g/dL Assessment & Plan Assessment: POD #1 Right ankle Inhouse Planning Pain Management: Oxycontin, PO Tylenol, Oxy IR DVT Prophylaxis: TEDs, SCDs, other Discharge Planning Discharge Planning: home Pain Management: Oxycontin, [place], PO Tylenol DVT Prophylaxis: TEDs, other (plan for discharge today as long as pain continues to be under control)
[2016-04-06] MEDS ORDERED: OXYSR10 PO (09:30)
[2016-04-06] MEDS ORDERED: OXYC-57 PO (09:30)
--- NOTE | 2016-04-06 09:32 | Discharge Instructions ---
Discharge Instructions Admission Reason for Admission: Right Ankle/Foot Osteoarthritis Discharge Discharge Diagnosis / Problem: Right triple arthrodesis. Discharge Goals Goal(s): Decrease discomfort, Improve function, Increase independence Activity Recommendations Activity Limitations: per Instructions/Follow-up section ACTIVITY RECOMMENDATIONS: Limitations: No weight bearing to affected limb at all times. SPECIAL CARE INSTRUCTIONS: * Some drainage onto the dressing is normal and is no cause for alarm. * Some swelling is natural especially after walking. * When resting, keep your foot elevated above the level of your heart. * Call [facility] if you notice: -Increased drainage -Fever over 101 degrees F -Severe constant pain BANDAGE: * Leave bandage/cast in place unless otherwise directed. * Keep bandage/cast dry at all times. FOLLOW UP VISIT WITH DR. SOUZA If appointment is not already scheduled: Please call [facility] after you get home today to schedule a follow-up appointment for [address] Souza at . . Current Hospital Diet Patient's current hospital diet: Diabetes Type 2 Diet Discharge Diet Recommended Diet: Diabetes Type 2 Diet Procedures Procedures Performed: Right Ankle Triple Arthrodesis with Percutaneous Tendoachilles Lengthening; Application of Platelet Rich Plasma; Application of Augment Pending Studies Studies pending at discharge: no Laboratory Results Hemoglobin A1c Test 04/06/16 06:01 Range/Units Estimated Average Glucose 206 mg/dl Hemoglobin A1c 8.8 H 4.5-5.6 % Medical Emergencies . Who to Call and When: Medical Emergencies: If at any time you feel your situation is an emergency, please call 911 immediately. . Non-Emergent Contact Non-Emergency issues call your: Primary Care Provider . "Provider Documentation" section prepared by Ilene Herzog. VTE Core Measure Inpt VTE Proph given/why not?: Otilio Chowdary, SCD's
[2016-04-06] MEDS: FLUTICASONE PROPIONATE NA SPR 16 GM BTL NAE SCH (10:48)
[2016-04-06 13:15] VITALS: BP 167/71; PULSE 93
[2016-04-06 13:52] VITALS: BP 132/68; PULSE 88; TEMP 36.8; O2SAT 96
[2016-04-06 15:38] VITALS: BP 127/70; PULSE 87; TEMP 37.1; O2SAT 92
--- NOTE | 2016-04-06 17:32 | Progress Note ---
Medicine Progress Note Date & Time of Visit: Apr 06, 2016 at 17:27. Subjective 61 yo M s/p ankle surgery yesterday Doing well Tolerating PO Pain is well controlled Denies any other symptoms at this time Objective Last 8 Hrs Date Time Temp Pulse Resp B/P Pulse Ox O2 Delivery O2 Flow Rate FiO2 04/06/16 15:38 37.1 87 17 127/70 92 Room Air 04/06/16 15:30 Room Air 04/06/16 13:52 36.8 88 16 132/68 96 Room Air 04/06/16 13:15 93 Physical Exam: GEN: WNWD, in no acute distress, alert and appropriate HEENT: NC/AT, normal sclerae CARDIO: reg rate, S1/2 heard without m/g/r LUNGS: CTA bilaterally, no crackles, rales or wheezes, good diaphragmatic excursion ABD: soft, non-tender, non-distended, no rebound or guarding, +BS EXTREMITY: no LE swelling or edema, extremities are warm and well-perfused, RLE is extensively bandaged and wrapped up. NEURO: CN 2-12 grossly intact MUSC: well-developed musculature SKIN: warm and dry Laboratory Results: Last 24 Hours Test 04/05/16 17:35 04/05/16 20:41 04/06/16 06:01 04/06/16 07:57 Bedside Glucose 167 mg/dl 185 mg/dl 187 mg/dl White Blood Count 14.18 K/uL Red Blood Count 4.03 M/uL Hemoglobin 12.3 g/dL Hematocrit 36.9 % Mean Corpuscular Volume 91.6 fL Mean Corpuscular Hemoglobin 30.5 pg Mean Corpuscular Hemoglobin Concent 33.3 g/dl RDW Standard Deviation 47.1 fL RDW Coefficient of Variation 14.1 % Platelet Count 309 K/uL Mean Platelet Volume 9.9 fL Sodium Level 137 mmol/L Potassium Level 4.2 mmol/L Chloride Level 102 mmol/L Carbon Dioxide Level 25 mmol/L Anion Gap 10.0 mmol/L Blood Urea Nitrogen 14 mg/dl Creatinine 1.20 mg/dl Est Creatinine Clear Calc Drug Dose 81.4 ml/min Estimated GFR () 74.1 Estimated GFR (Non- 64.0 BUN/Creatinine Ratio 12.0 Random Glucose 179 mg/dl Estimated Average Glucose 206 mg/dl Hemoglobin A1c 8.8 % Calcium Level 8.8 mg/dl Hepatitis C Antibody Screen NEG Test 04/06/16 11:59 04/06/16 16:55 Bedside Glucose 192 mg/dl 174 mg/dl Assessment & Plan SEVERE R FOOT OA S/P R ANKLE ARTHRODESIS WITH ACHILLES TENDON LENGTHENING -POD 1; surgery performed by Dr. Hood -post-operative pain well managed -monitor for acute blood loss with daily H&H-->stable today -pt encouraged to utilize spirometry to prevent post-op infection -PT/OT-NWB per Ortho instructions -activity and wound care orders per ortho protocol -will continue to follow INSULIN-DEPENDENT DM 2 -last A1C 8.3; repeat in AM -hold Metformin, Invokana, Victoza and NovoLog -cont Lantus and start ISS -monitor BSG AC HS -glycemic pharmacist consulted for assistance as inpatient CAD -s/p stent to mid RCA 2005 -cont, Plavix, statin--> ASA was restarted for tomorrow -pt currently denies acute coronary sxs HTN -stable -cont losartan -monitor DYSLIPIDEMIA -cont statin, fenofibrate and fish oil DVT PROPHYLAXIS -per ortho protocol -SCDs on board now CODE STATUS -FULL CODE status DISPO Likely dc in am Kimber Estrella DO [facility] Hospitalist Current Inpatient Medications: Current Inpatient Medications Medications (Trade) Dose Ordered Sig/Christiano Route Start Time Stop Time Status Last Admin Dose Admin Atorvastatin Calcium (Lipitor Tab) 80 mg QAM PO 04/06/16 09:00 05/06/16 08:59 04/06/16 09:20 80 MG Clopidogrel Bisulfate (plAVix TAB) 75 mg QAM PO 04/06/16 09:00 05/06/16 08:59 04/06/16 09:20 75 MG Fenofibrate (Tricor Tab) 145 mg QPM PO 04/05/16 21:00 05/05/16 20:59 04/05/16 21:00 145 MG Fish Oil ([place]-3 (Purified Fish Oil) Cap) 1 gm BID PO 04/05/16 21:00 05/05/16 20:59 04/06/16 09:20 1 GM Fluticasone Propionate (Flonase Nasal [place]) 1 sprays QAM VILMA 04/06/16 09:00 05/06/16 08:59 04/06/16 10:48 1 SPRAYS Loratadine (Claritin Tab) 10 mg QAM PO 04/06/16 09:00 05/06/16 08:59 04/06/16 09:20 10 MG Losartan Potassium (coZAAR TAB) 50 mg QAM PO 04/06/16 09:00 05/06/16 08:59 04/06/16 09:20 50 MG Metformin HCl (Glucophage Tab) 1,000 mg BIDM PO 04/05/16 17:45 05/05/16 17:44 Future Hold 04/05/16 18:17 1,000 MG Montelukast Sodium (Singulair Tab) 10 mg HS PO 04/05/16 21:00 05/05/16 20:59 Travoprost (Travatan Z) 1 drops HS OPL 04/05/16 21:00 05/05/16 20:59 04/05/16 21:03 1 DROPS Trazodone HCl (Desyrel Tab) 50 mg QPM PO 04/05/16 21:00 05/05/16 20:59 04/05/16 21:01 50 MG Miscellaneous Medication (No Nsaids) 1 ea UD N/A 04/05/16 11:30 05/05/16 11:29 Oxycodone HCl (Roxicodone Immediate Rel Tab) 1-2 TABS FOR PAIN 1 TABLET ... Q4H PRN PO 04/05/16 11:30 04/19/16 11:29 04/06/16 15:54 10 MG Oxycodone HCl (Oxycontin Tab) 10 mg Q12 PO 04/05/16 21:00 04/19/16 20:59 04/06/16 09:20 10 MG Morphine Sulfate (MoRPHine SULFATE INJ) 1 mg Q1HWA PRN IV 04/05/16 11:30 04/19/16 11:29 04/05/16 20:55 1 MG Acetaminophen (Tylenol Tab) 1,000 mg Q8 PO 04/05/16 14:00 05/05/16 13:59 04/06/16 14:13 1,000 MG Magnesium Hydroxide (Milk Of Magnesia Susp) 30 ml Q6H PRN PO 04/05/16 11:30 05/05/16 11:29 Bisacodyl (Dulcolax Supp) 10 mg DAILY PRN [place] 04/05/16 11:30 05/05/16 11:29 04/06/16 11:06 10 MG Sodium Biphosphate/ Sodium Phosphate (Fleet Enema) 132 ml DAILY PRN [place] 04/05/16 11:30 05/05/16 11:29 Senna (Senokot Tab) 17.2 mg HS PO 04/05/16 21:00 05/05/16 20:59 04/05/16 20:58 17.2 MG Docusate Sodium (coLACE CAP) 100 mg BID PO 04/05/16 21:00 05/05/16 20:59 04/06/16 09:20 100 MG Diphenhydramine HCl (Benadryl Cap) 25 mg Q8H PRN PO 04/05/16 11:30 05/05/16 11:29 Al Hydrox/Mg Hydrox/Simethicone (Maalox Max Susp) 15 ml Q4H PRN PO 04/05/16 11:30 05/05/16 11:29 Zolpidem Tartrate (Ambien Tab) 5 mg HSZ PRN PO 04/05/16 11:30 05/05/16 11:29 Multivitamins (Multivitamin Tab) 1 tab QAM PO 04/06/16 09:00 05/06/16 08:59 04/06/16 09:20 1 TAB Ondansetron HCl (Zofran Inj) 4 mg Q6H PRN IV 04/05/16 11:30 05/05/16 11:29 Pantoprazole Sodium (Protonix Tab) 40 mg QAM PO 04/06/16 09:00 05/06/16 08:59 04/06/16 09:20 40 MG Miscellaneous (Iv Fluids Completed) 1 ea PRN PRN N/A 04/05/16 12:00 04/05/17 11:59 Insulin Aspart (novoLOG ASPART) SLIDING SCALE If C... ACHS SC 04/05/16 17:15 05/05/16 17:14 04/06/16 13:01 11 UNITS Glucose (Glucose 40% Gel) 15-30 GRAMS 15 GRAMS... UD PRN PO 04/05/16 14:45 05/05/16 14:44 Glucose (Glucose Chew Tab) 4-8 Tablets 4 Tabl... UD PRN PO 04/05/16 14:45 05/05/16 14:44 Dextrose (Dextrose 50% 50ML Syringe) 25-50ML OF 50% DW IV FOR... UD PRN IV 04/05/16 14:45 05/05/16 14:44 Glucagon (Glucagon Inj) 1 mg UD PRN SQ 04/05/16 14:45 05/05/16 14:44 Dorzolamide/ Timolol (Cosopt Op Soln) 1 drops BID OP 04/05/16 21:00 05/05/16 20:59 04/06/16 09:21 1 DROPS Gabapentin (Neurontin Tab) 1,200 mg HS PO 04/05/16 21:00 05/05/16 20:59 04/05/16 21:02 1,200 MG Insulin Glargine (Lantus Vial) 58 unit BID SC 04/05/16 21:00 05/05/16 20:59 04/06/16 09:24 58 UNIT Magnesium Oxide (Mag-Ox Tab) 400 mg TID PO 04/05/16 21:00 05/05/16 20:59 04/06/16 14:14 400 MG Trazodone HCl (Desyrel Tab) 150 mg HS PO 04/05/16 21:00 05/05/16 20:59 04/05/16 21:01 150 MG Gabapentin (Neurontin Tab) 600 mg BID@0900,1400 PO 04/06/16 09:00 05/06/16 08:59 04/06/16 14:13 600 MG Miscellaneous Information (Consult Glycemic Management Pharmacy) 1 ea UD PRN N/A 04/06/16 08:55 05/06/16 08:54
[2016-04-06] MEDS: TRAVOPROST Z 0.004% OPH SOLN 2.5 ML BTL OPL SCH (21:26)
[2016-04-06] MEDS: FENOFIBRATE 145 MG TAB PO SCH (21:27)
[2016-04-06] MEDS: SENNA 8.6 MG TAB PO SCH (21:27)
[2016-04-06] MEDS: TRAZODONE HCL 50 MG TAB PO SCH ×2 (21:27)
[2016-04-06] MEDS: MONTELUKAST SOD 10 MG TAB PO SCH (21:27)
[2016-04-06 23:33] VITALS: BP 124/63; PULSE 88; TEMP 37; O2SAT 91
[2016-04-07] MEDS: ACETAMINOPHEN 500 MG TAB PO SCH (05:23)
[2016-04-07 05:36] LABS: HEMATOCRIT 34.2 % (42-52); MEAN CELL VOLUME 91.4 fL (80-100); MEAN CORPUSCULAR HEMOGLOBIN 29.7 pg (25-34); MEAN CORPUSCULAR HGB CONC 32.5 g/dl (32-36); MEAN PLATELET VOLUME 9.8 fL (7.4-10.4); PLATELET COUNT 291 K/uL (130-400); RED BLOOD COUNT 3.74 M/uL (4.7-6.1); WHITE BLOOD COUNT 12.43 K/uL (4.8-10.8)
[2016-04-07 06:02] LABS: BUN/CREATININE RATIO 12.7 (10-20); CALCIUM 8.5 mg/dl (8.5-10.1); CREATININE 1.2 mg/dl (0.60-1.40); POTASSIUM 3.9 mmol/L (3.5-5.1)
[2016-04-07 06:52] VITALS: BP 124/65; PULSE 86; TEMP 36.9; O2SAT 94
[2016-04-07] MEDS: LOSARTAN POTASSIUM 50 MG TAB PO SCH (08:33)
[2016-04-07] MEDS: OMEGA-3 (PURIFIED FISH OIL) 1 GM CAP PO SCH (08:33)
[2016-04-07] MEDS: LORATADINE 10 MG TAB PO SCH (08:33)
[2016-04-07] MEDS: ATORVASTATIN 40 MG TAB PO SCH (08:33)
[2016-04-07] MEDS: MAGNESIUM OXIDE 400 MG TAB PO SCH (08:33)
[2016-04-07] MEDS: MULTIVITAMIN TAB PO SCH (08:33)
[2016-04-07] MEDS: GABAPENTIN 600 MG TAB PO SCH (08:33)
[2016-04-07] MEDS: CLOPIDOGREL BISULFATE 75 MG TAB PO SCH (08:33)
[2016-04-07] MEDS: DOCUSATE SODIUM 100 MG CAP PO SCH (08:33)
[2016-04-07] MEDS: PANTOprazole SOD 40 MG TAB PO SCH (08:33)
[2016-04-07] MEDS: FLUTICASONE PROPIONATE NA SPR 16 GM BTL NAE SCH (08:33)
[2016-04-07] MEDS: OXYCODONE HCL 10 MG TABCR (OXYCONTIN) PO SCH (08:33)
[2016-04-07] MEDS: DORZOLAMIDE/TIMOLOL 22.3/6.8MG/ML 10 ML BTL OP SCH (08:34)
[2016-04-07] MEDS: INSULIN ASPART 100 UNITS/ML 3 ML PEN SC SCH (08:36)
[2016-04-07] MEDS: INSULIN GLARGINE SC SCH (08:37)
[2016-04-07] MEDS: OXYCODONE HCL IR 5 MG TAB (IMMEDIATE RELEASE) PO PRN (08:38)
--- NOTE | 2016-04-07 08:43 | Orthopedic Progress Note ---
Orthopedic Progress Note Date of Service Apr 07, 2016. Subjective Post OP Day: 2 Reports: feeling well, pain controlled w PO medications, Denies: calf pain, chest pain, nausea / vomiting Objective calves soft nontender, N/V intact, splint C/D/I, capillary refill less than 2 sec., A&O x3, toes mobile, hemovac drainage Date Time Temp Pulse Resp B/P Pulse Ox O2 Delivery O2 Flow Rate FiO2 04/07/16 07:35 Room Air 04/07/16 06:52 36.9 86 16 124/65 94 Room Air 04/06/16 23:55 Room Air 04/06/16 23:33 37.0 88 17 124/63 91 Room Air 04/06/16 15:38 37.1 87 17 127/70 92 Room Air 04/06/16 15:30 Room Air 04/06/16 13:52 36.8 88 16 132/68 96 Room Air 04/06/16 13:15 93 Laboratory Results 24 Hours: Test 04/07/16 05:20 Hematocrit 34.2 % Hemoglobin 11.1 g/dL Assessment & Plan Assessment: POD #1 Right ankle triple arthrodesis Plan: Plan for discharge today since pain is better controlled after some increased pain in the morning yesterday Inhouse Planning Pain Management: Oxycontin, PO Tylenol, Oxy IR DVT Prophylaxis: TEDs, SCDs, other Discharge Planning Discharge Planning: home Pain Management: Oxycontin, [place], PO Tylenol DVT Prophylaxis: TEDs, other (plan for discharge today as long as pain continues to be under control)
[2016-04-07] MEDS ORDERED: ASPIRIN 81 MG ECTAB PO SCH (09:00)
[2016-04-07 09:48] VITALS: BP 124/65; PULSE 86; TEMP 36.9; O2SAT 94
--- NOTE | 2016-04-09 13:11 | Discharge Summary ---
Orthopedic Discharge Summary Admission Date/Reason Apr 05, 2016 at 11:27 Right Ankle/Foot Osteoarthritis. Discharge Date/Disposition Apr 07, 2016 Home Diagnosis Principal Diagnosis: Right hindfoot osteoarthritis Procedure(s) Performed 1. Right triple arthrodesis. 2. Percutaneous tendon Achilles lengthening. 3. Application of platelet rich plasma concentrate. 4. Application of Augment bone substitute Consultations Medicine Pharmacy Medication Reconciliation New Medications: Oxycodone/Acetaminophen 5MG/325MG (Percocet 5MG/325MG) Tab 1-2 TABLETS PO Q4H PRN for Pain, #60 TAB Oxycodone HCl (Oxycontin) 10 Mg Tabcr 10 MG PO Q12, #20 Continued Medications: Ascorbic Acid (Vitamin C) 500 Mg Tab 500 MG PO DAILY Aspirin (Aspirin Ec) 81 Mg Tab 81 MG PO QAM Atorvastatin (Lipitor) 80 Mg Tab 80 MG PO QAM, TAB Canagliflozin (Invokana) 300 Mg Tab 1 TAB PO QAM TAKES 15 MINUTES PRIOR TO EATING BREAKFAST Clopidogrel (Plavix) 75 Mg Tab 75 MG PO QAM, TAB Dorzolamide Hcl-Timolol Maleat (Cosopt Oph) 1 Shanice Shanice 1 DROPS OP BID, #10 ML 6 Refills Fenofibrate (Tricor ) 145 Mg Tab 145 MG PO QPM, TAB Fish Oil (Badger-3) 1 Ea Cap 1360 MG PO BID, CAP Fluticasone Propionate (Nasal) (Flonase Allergy Relief) 50 Mcg/Act Spr 2 SPRAY VILMA QAM Gabapentin (Neurontin) 300 Mg Cap 600 MG PO BID, CAP Gabapentin (Gabapentin) 600 Mg Tab 1200 MG PO HS Indomethacin (Indocin) 25 Mg Cap 25 MG PO TID PRN for gout, CAP Insulin Aspart (Novolog Flexpen) 100 Units/Ml Inj DOSED ON SLIDING SCALE BASED OFF OF 26 UNITS PER PATIENT Insulin Glargine (Lantus Solostar) 100 Unit/Ml Inj 58 UNITS SC BID, PEN Liraglutide (Victoza) 18 Mg/3 Ml Inj 1.2 MG SC QAM Loratadine (Claritin) 10 Mg Tab 10 MG PO QAM, TAB Losartan Potassium (Cozaar) 50 Mg Tab 50 MG PO QAM, TAB Magnesium Oxide (Mag-Ox) 400 Mg Tab 400 MG PO TID, TAB Metformin Hcl (Glucophage) 1,000 Mg Tab 1000 MG PO BID, TAB Montelukast Sodium (Singulair) 10 Mg Tab 10 MG PO HS, TAB Omeprazole (Prilosec) 20 Mg Capcr 20 MG PO QAM, CAP Travoprost (Travatan Z) 0.004 % Kenn 1 DROPS OPL HS, BTL Trazodone Hcl (Trazodone) 50 Mg Tab 150 MG PO HS, TAB Discontinued Medications: Hydrocodone/Acetaminophen 5MG/325MG ([place] 5MG/325MG) Tab 1 TABLET PO HS PRN for Pain, TAB PRN PAIN Ibuprofen (Motrin) 800 Mg Tab 800 MG PO NOON PRN for Pain, TAB Tramadol (Ultram) 50 Mg Tab 50 MG PO Q8H PRN for Pain, TAB Admission Physical Exam As per Admitting History & Physical. Hospital Course The patient was admitted on the above date and underwent a triple arthrodesis. Throughout the post operative stay, pain control and NWB status were goals of the patient. Medicine worked with patient to maintain blood glucose levels. On POD #2, the patient was discharged home. Discharge Instructions Please refer to the electronic Patient Visit Report (Discharge Instructions) for additional information. ACTIVITY RECOMMENDATIONS: Limitations: No weight bearing to affected limb at all times. SPECIAL CARE INSTRUCTIONS: * Some drainage onto the dressing is normal and is no cause for alarm. * Some swelling is natural especially after walking. * When resting, keep your foot elevated above the level of your heart. * Call [facility] if you notice: -Increased drainage -Fever over 101 degrees F -Severe constant pain BANDAGE: * Leave bandage/cast in place unless otherwise directed. * Keep bandage/cast dry at all times. FOLLOW UP VISIT WITH DR. SOUZA If appointment is not already scheduled: Please call [facility] after you get home today to schedule a follow-up appointment for [address] Souza at .
== END 2016-04-07 12:55 | disposition home or self-care (01) ==
LOC: ENRESERVDT → ENRESERVTM → C.ACU 05:13 → C.3E 11:27
PROVIDERS: ADMIT Orthopaedic Surgery Sports Medicine; ATTEND Orthopaedic Surgery Sports Medicine
DX: M19.071 Primary osteoarthritis, right ankle and foot (principal); M14.671 Charcot's joint, right ankle and foot; M21.861 Other specified acquired deformities of right lower leg; M67.01 Short Achilles tendon (acquired), right ankle; Z95.5 Presence of coronary angioplasty implant and graft; I25.9 Chronic ischemic heart disease, unspecified; E10.9 Type 1 diabetes mellitus without complications; E78.5 Hyperlipidemia, unspecified; E10.319 Type 1 diabetes mellitus with unspecified diabetic retinopathy without macular edema; E10.42 Type 1 diabetes mellitus with diabetic polyneuropathy; Z87.442 Personal history of urinary calculi; H40.9 Unspecified glaucoma; Z79.4 Long term (current) use of insulin; Z88.8 Allergy status to other drugs, medicaments and biological substances; E78.00 Pure hypercholesterolemia, unspecified; R01.1 Cardiac murmur, unspecified; R07.9 Chest pain, unspecified; M19.90 Unspecified osteoarthritis, unspecified site; K44.9 Diaphragmatic hernia without obstruction or gangrene; E66.9 Obesity, unspecified; Z79.82 Long term (current) use of aspirin; I25.10 Atherosclerotic heart disease of native coronary artery without angina pectoris; K21.9 Gastro-esophageal reflux disease without esophagitis; K22.70 Barrett's esophagus without dysplasia; N18.3 Chronic kidney disease, stage 3 (moderate); D64.9 Anemia, unspecified; M10.9 Gout, unspecified
CPT/HCPCS: 0232T; 27612; 28715